=== PATIENT | male | born 1970 | race Caucasian/White ===

== ENCOUNTER 2019-03-29 15:28 | Emergency (ER) | payer MEDICARE, SELFPAY ==
[2019-03-29] VITALS (77 sets, daily range): BP systolic 64–141; BP diastolic 42–97; PULSE 76–133; RESP 0–28; TEMP 36.7–37.3; O2SAT 85–100
--- NOTE | 2019-03-29 15:44 | W.ED.GENAD ---
Discharge Plan Disposition Patient Disposition: [facility] Condition: Fair Discharge Details Chief Complaint: GenMedical Clinical Impression: Hypotension, ESRD (end stage renal disease) on dialysis Primary Care Provider: Lorne Stewart ED Provider: Sivan Ang Home Meds and New Rx's Prescriptions: No Action atorvastatin [Lipitor] 40 mg Tablet 40 mg PO DAILY RF: 0 torsemide 20 mg Tablet 40 mg PO UNKNOWN RF: 0 amlodipine 5 mg Tablet 5 mg PO DAILY RF: 0 lisinopril 10 mg Tablet 10 mg PO DAILY RF: 0 aspirin 81 mg Tablet,Chewable 81 mg PO DAILY RF: 0 Levemir FlexTouch U-100 Insuln 100 unit/mL (3 mL) Insulin Pen 20 unit subcut HS RF: 0 sevelamer carbonate [Renvela] 800 mg Tablet 1,600 mg PO TID RF: 0 Discharge Data Discharge Date/Time-TO BE ENTERED AT DEPARTURE: 03/29/19 19:55 Medical Decision Making 48-year-old male with a history of diabetes, hypertension, hyperlipidemia, end-stage renal disease on dialysis who presents for hypotension noted at dialysis and increasing worsening generalized weakness over the past 2 weeks. Systolic blood pressure in the 70s per EMS. Patient was given 2500 L of fluid and no fluid was taken off of dialysis due to his hypotension. Systolic BP on arrival 120s. Shortly after arrival, blood pressure decreased to 65/45. Pt appears pale. Patient was recently at [facility] for anemia and acute renal failure and profound metabolic acidosis attributed to poorly controlled diabetes, hypertension and NSAID use. He was initiated on dialysis on this recent [facility] admission. Concern for fluid overload from dialysis in the setting of hypotension. We will give a 250 bolus and continued gentle hydration and monitoring blood pressures. Blood pressure 80s. Will start levophed. EKG notes a rate of 83 and sinus with T wave inversion in 1, aVL, V2 through V6. No acute ST findings. Labs and imaging reviewed. Hemoglobin 6.8. Hemoglobin on admission to [facility] was 6.5. Upon discharge was 9. BUN 56. Creatinine 5. Calcium 8. Chest x-ray negative. Unclear source of hypotension. Does not appear consistent with sepsis. Possibly due to anemia? Guaiac negative. Possible cardiac origin as EKG abnormal but no old EKG to compare. 1700 --discussed with [facility] hospitalist -cannot accept patient if on pressors. Blood pressure 101/77. Will DC pressors and monitor. If continuing to need pressors, will call critical care at [facility]. We will also order 1 unit PRBC. Concern for fluid overload in the setting of renal failure on dialysis and will need to transfer to facility with dialysis. 1800 --BP 79/55. Discussed with [facility] critical care Dr. Morales - no ICU beds available but accepts for transfer to ED. Accepting physician in ED Dr. Wolff. Patient agreeable with transfer. Dr. Morales recommends against central line placement as they will remove it once he arrives there. Would prefer levophed through peripheral line. Will restart levophed. 1910 --BP prior to transfer on 4mcg of levophed ~ 112/76, HR 85, RR 16. Pt appears comfortable and in no acute distress. Medical Records Medical records reviewed: Yes I reviewed the patient's medical records. Imaging Data Radiologic Study: Radiologist's impression: XR Chest, 1 View EXAM DATE/TIME: 03/29/2019 3:40 PM CLINICAL HISTORY: 48 years old, male; Signs and symptoms; Other: Generalized weakness. R/O acute disease TECHNIQUE: Imaging protocol: XR of the chest, 1 view. COMPARISON: No relevant prior studies available. FINDINGS: A left-sided Port-A-Cath is present. No airspace consolidation, pleural effusion or pneumothorax. The cardiomediastinal silhouette is unremarkable. IMPRESSION: No acute findings. Lab Data Lab results reviewed: Yes I reviewed the patient's lab results. ECG Data Attestation: I personally reviewed and interpreted this ECG (s) as follows: Interpretation: Rate of 83, sinus, T wave inversion in 1, aVL, V2 through V6. No acute ST elevation. QTc 444. QRS 96 HPI General Mode of arrival: EMS. Date/Time Provider Initiated Documentation: 03/29/19 15:37. Limitations to Documentation: no limitations. Information obtained by: patient. HPI Narrative: Patient is a 48-year-old male with a history of diabetes, hypertension, and recently diagnosed acute renal failure currently on dialysis who presents for hypotension noted at dialysis today. Systolic pressures in the 70s per EMS. Patient admits to generalized increasing weakness over the past 2 weeks since discharge from [facility] 2 weeks ago. Patient states he was admitted for anemia, and shortness of breath after he presented to [facility] and was then transferred to [facility]. Patient states he has been on Tuesday, , Tuesday dialysis. Related Data Home Medications Medication Instructions Recorded Confirmed amlodipine 5 mg PO DAILY 03/29/19 03/29/19 aspirin 81 mg PO DAILY 03/29/19 03/29/19 atorvastatin [Lipitor] 40 mg PO DAILY 03/29/19 03/29/19 insulin detemir U-100 [Levemir 20 unit SUBCUT HS 03/29/19 03/29/19 FlexTouch U-100 Insuln] lisinopril 10 mg PO DAILY 03/29/19 03/29/19 sevelamer carbonate [Renvela] 1,600 mg PO TID 03/29/19 03/29/19 torsemide 40 mg PO UNKNOWN 03/29/19 03/29/19 Allergies Allergy/AdvReac Type Severity Reaction Status Date / Time No Known Allergies Allergy Unverified 03/29/19 15:33 General Stated Complaint: GenMedical ASHISH: 2 Review of Systems Review of Systems All systems reviewed & are unremarkable except as noted in HPI and below Constitutional Reports as per HPI, Denies chills and Denies fever(s) Eyes Denies blurry vision ENT Denies dizziness, Denies sore throat and Denies throat swelling Cardiovascular Denies chest pain and Denies dyspnea Respiratory Denies cough and Denies dyspnea Gastrointestinal Denies abdominal pain, Denies diarrhea and Denies vomiting Genitourinary Denies hematuria and Denies dysuria Musculoskeletal Denies back pain and Denies numbness Integumentary/Breasts Denies lesions and Denies rash Neurologic Denies dizziness, Denies focal weakness and Denies numbness Allergic/Immunologic Denies throat swelling [facility] Medical History ESRD (end stage renal disease) on dialysis (Acute) Hx of hyperlipidemia (Acute) Diabetes (Chronic) HTN (hypertension) (Chronic) Surgical History Port-A-Cath in place (Acute) Social History Smoking/Tobacco Use Status: Current every day Alcohol Intake: never Substance use type: does not use Do you feel safe at home: Yes Do you feel safe in your relationship?: Yes Exam Const General: cooperative and no acute distress HENMT Head: normal to inspection Face and sinus: normal facial exam Eyes General: appearance normal, both eyes and all related structures Pupils: PERRL EOM: EOM intact bilaterally Neck Neck: normal visual inspection and No submandibular swelling Lymphatic: no lymphadenopathy noted Chest Chest: normal inspection of the chest and no tenderness Resp Effort & Inspection: normal respiratory effort and able to speak in complete sentences Auscultation: clear to auscultation bilaterally Cardio Rate: regular rate Rhythm: regular rhythm GI Inspection: normal to inspection Palpation: soft, not firm, not rigid and nontender Auscultation: normal bowel sounds Male General Exam: Yes normal external exam Back/Spine/Pelvis Thoracic/Lumbar Spine: thoracic and lumbar spine normal to inspection Pelvis: no pain with anterior-posterior compression Skin General skin exam: no rashes or lesions noted Neuro General: alert, awake and oriented x3 Cognition: normal cognition Speech: speech normal Motor: muscle tone normal throughout Sensory Exam: no sensory deficits noted Extrem Other: Bilateral BKA Psych Appearance: grossly normal Mental Status: mental status grossly normal Speech and Movement: speech and movement normal Affect: normal affect Course Vital Signs Temperature 98.1 F 03/29/19 15:30 Pulse 84 03/29/19 15:30 Respiratory Rate 14 03/29/19 15:30 Blood Pressure 126/97 H 03/29/19 15:30 Pulse Oximetry 100 03/29/19 15:30 Temperature 98.1 F 03/29/19 15:30 Temperature Source Temporal Artery Scan 03/29/19 15:30 Pulse 84 03/29/19 15:30 Respiratory Rate 14 03/29/19 15:30 Respiratory Effort Non-Labored 03/29/19 15:30 Blood Pressure 126/97 H 03/29/19 15:30 Pulse Oximetry 100 03/29/19 15:30 Oxygen Delivery Method Room Air 03/29/19 15:30 Oxygen Flow Rate 0 03/29/19 15:30 Pain Level 0 03/29/19 15:30 Critical Care Time Total Critical Care Time: 20 Attestation: minutes
[2019-03-29] MEDS: Normal Saline Flush 10 ML SYR IVP (15:49)
--- NOTE | 2019-03-29 15:51 | ED.GENADUL_ITS ---
Discharge Plan Disposition Patient Disposition: [facility] Condition: Fair Discharge Details Chief Complaint: GenMedical Clinical Impression: Hypotension, ESRD (end stage renal disease) on dialysis Primary Care Provider: Lorne Stewart ED Provider: Sivan Ang Home Meds and New Rx's Prescriptions: No Action atorvastatin [Lipitor] 40 mg Tablet 40 mg PO DAILY RF: 0 torsemide 20 mg Tablet 40 mg PO UNKNOWN RF: 0 amlodipine 5 mg Tablet 5 mg PO DAILY RF: 0 lisinopril 10 mg Tablet 10 mg PO DAILY RF: 0 aspirin 81 mg Tablet,Chewable 81 mg PO DAILY RF: 0 Levemir FlexTouch U-100 Insuln 100 unit/mL (3 mL) Insulin Pen 20 unit subcut HS RF: 0 sevelamer carbonate [Renvela] 800 mg Tablet 1,600 mg PO TID RF: 0 Discharge Data Discharge Date/Time-TO BE ENTERED AT DEPARTURE: 03/29/19 19:55 Medical Decision Making 48-year-old male with a history of diabetes, hypertension, hyperlipidemia, end- stage renal disease on dialysis who presents for hypotension noted at dialysis and increasing worsening generalized weakness over the past 2 weeks. Systolic blood pressure in the 70s per EMS. Patient was given 2500 L of fluid and no fluid was taken off of dialysis due to his hypotension. Systolic BP on arrival 120s. Shortly after arrival, blood pressure decreased to 65/45. Pt appears pale. Patient was recently at [facility] for anemia and acute renal failure and profound metabolic acidosis attributed to poorly controlled diabetes, hypertension and NSAID use. He was initiated on dialysis on this recent [facility] admission. Concern for fluid overload from dialysis in the setting of hypotension. We will give a 250 bolus and continued gentle hydration and monitoring blood pressures. Blood pressure 80s. Will start levophed. EKG notes a rate of 83 and sinus with T wave inversion in 1, aVL, V2 through V6. No acute ST findings. Labs and imaging reviewed. Hemoglobin 6.8. Hemoglobin on admission to [facility] was 6.5. Upon discharge was 9. BUN 56. Creatinine 5. Calcium 8. Chest x-ray negative. Unclear source of hypotension. Does not appear consistent with sepsis. Possibly due to anemia? Guaiac negative. Possible cardiac origin as EKG abnormal but no old EKG to compare. 1700 --discussed with [facility] hospitalist -cannot accept patient if on pressors. Blood pressure 101/77. Will DC pressors and monitor. If continuing to need pressors, will call critical care at [facility]. We will also order 1 unit PRBC. Concern for fluid overload in the setting of renal failure on dialysis and will need to transfer to facility with dialysis. 1800 --BP 79/55. Discussed with [facility] critical care Dr. Morales - no ICU beds available but accepts for transfer to ED. Accepting physician in ED Dr. Wolff. Patient agreeable with transfer. Dr. Morales recommends against central line placement as they will remove it once he arrives there. Would prefer levophed through peripheral line. Will restart levophed. 1910 --BP prior to transfer on 4mcg of levophed ~ 112/76, HR 85, RR 16. Pt appears comfortable and in no acute distress. Medical Records Medical records reviewed: Yes I reviewed the patient's medical records. Imaging Data Radiologic Study: Radiologist's impression: XR Chest, 1 View EXAM DATE/TIME: 03/29/2019 3:40 PM CLINICAL HISTORY: 48 years old, male; Signs and symptoms; Other: Generalized weakness. R/O acute disease TECHNIQUE: Imaging protocol: XR of the chest, 1 view. COMPARISON: No relevant prior studies available. FINDINGS: A left-sided Port-A-Cath is present. No airspace consolidation, pleural effusion or pneumothorax. The cardiomediastinal silhouette is unremarkable. IMPRESSION: No acute findings. Lab Data Lab results reviewed: Yes I reviewed the patient's lab results. ECG Data Attestation: I personally reviewed and interpreted this ECG (s) as follows: Interpretation: Rate of 83, sinus, T wave inversion in 1, aVL, V2 through V6. No acute ST elevation. QTc 444. QRS 96 HPI General Mode of arrival: EMS . Date/Time Provider Initiated Documentation: 03/29/19 15:37 . Limitations to Documentation: no limitations . Information obtained by: patient . HPI Narrative: Patient is a 48-year-old male with a history of diabetes, hypertension, and recently diagnosed acute renal failure currently on dialysis who presents for hypotension noted at dialysis today. Systolic pressures in the 70s per EMS. Patient admits to generalized increasing weakness over the past 2 weeks since discharge from [facility] 2 weeks ago. Patient states he was admitted for anemia, and shortness of breath after he presented to and was then transferred to [facility]. Patient states he has been on Tuesday, , Tuesday dialysis. Related Data Home Medications Medication Instructions Recorded Confirmed amlodipine 5 mg PO DAILY 03/29/19 03/29/19 aspirin 81 mg PO DAILY 03/29/19 03/29/19 atorvastatin [Lipitor] 40 mg PO DAILY 03/29/19 03/29/19 insulin detemir U-100 [Levemir 20 unit SUBCUT HS 03/29/19 03/29/19 FlexTouch U-100 Insuln] lisinopril 10 mg PO DAILY 03/29/19 03/29/19 sevelamer carbonate [Renvela] 1,600 mg PO TID 03/29/19 03/29/19 torsemide 40 mg PO UNKNOWN 03/29/19 03/29/19 Allergies Allergy/AdvReac Type Severity Reaction Status Date / Time No Known Allergies Allergy Unverified 03/29/19 15:33 General Stated Complaint: GenMedical ASHISH: 2 Review of Systems Review of Systems All systems reviewed & are unremarkable except as noted in HPI and below Constitutional Reports as per HPI, Denies chills and Denies fever(s) Eyes Denies blurry vision ENT Denies dizziness, Denies sore throat and Denies throat swelling Cardiovascular Denies chest pain and Denies dyspnea Respiratory Denies cough and Denies dyspnea Gastrointestinal Denies abdominal pain, Denies diarrhea and Denies vomiting Genitourinary Denies hematuria and Denies dysuria Musculoskeletal Denies back pain and Denies numbness Integumentary/Breasts Denies lesions and Denies rash Neurologic Denies dizziness, Denies focal weakness and Denies numbness Allergic/Immunologic Denies throat swelling [facility] Medical History ESRD (end stage renal disease) on dialysis (Acute) Hx of hyperlipidemia (Acute) Diabetes (Chronic) HTN (hypertension) (Chronic) Surgical History Port-A-Cath in place (Acute) Social History Smoking/Tobacco Use Status: Current every day Alcohol Intake: never Substance use type: does not use Do you feel safe at home: Yes Do you feel safe in your relationship?: Yes Exam Const General: cooperative and no acute distress HENMT Head: normal to inspection Face and sinus: normal facial exam Eyes General: appearance normal, both eyes and all related structures Pupils: PERRL EOM: EOM intact bilaterally Neck Neck: normal visual inspection and No submandibular swelling Lymphatic: no lymphadenopathy noted Chest Chest: normal inspection of the chest and no tenderness Resp Effort & Inspection: normal respiratory effort and able to speak in complete sentences Auscultation: clear to auscultation bilaterally Cardio Rate: regular rate Rhythm: regular rhythm GI Inspection: normal to inspection Palpation: soft, not firm, not rigid and nontender Auscultation: normal bowel sounds Male General Exam: Yes normal external exam Back/Spine/Pelvis Thoracic/Lumbar Spine: thoracic and lumbar spine normal to inspection Pelvis: no pain with anterior-posterior compression Skin General skin exam: no rashes or lesions noted Neuro General: alert, awake and oriented x3 Cognition: normal cognition Speech: speech normal Motor: muscle tone normal throughout Sensory Exam: no sensory deficits noted Extrem Other: Bilateral BKA Psych Appearance: grossly normal Mental Status: mental status grossly normal Speech and Movement: speech and movement normal Affect: normal affect Course Vital Signs Temperature 98.1 F 03/29/19 15:30 Pulse 84 03/29/19 15:30 Respiratory Rate 14 03/29/19 15:30 Blood Pressure 126/97 H 03/29/19 15:30 Pulse Oximetry 100 03/29/19 15:30 Temperature 98.1 F 03/29/19 15:30 Temperature Source Temporal Artery Scan 03/29/19 15:30 Pulse 84 03/29/19 15:30 Respiratory Rate 14 03/29/19 15:30 Respiratory Effort Non-Labored 03/29/19 15:30 Blood Pressure 126/97 H 03/29/19 15:30 Pulse Oximetry 100 03/29/19 15:30 Oxygen Delivery Method Room Air 03/29/19 15:30 Oxygen Flow Rate 0 03/29/19 15:30 Pain Level 0 03/29/19 15:30 Critical Care Time Total Critical Care Time: 20 Attestation: minutes
--- NOTE | 2019-03-29 16:19 | DI.RAD_ITS ---
SYMPTOM/DIAGNOSIS: GENERALIZED WEAKNESS PORTABLE AP CHEST: There are no prior comparison exams. The heart is enlarged. A double lumen catheter is noted with the tip in the right atrium. The lungs appear clear. IMPRESSION: Cardiomegaly. No acute abnormality.
[2019-03-29 16:20] LABS: Abs Immature Grans 0.05 k/cumm (0.0-0.09); Absolute Basophil Count 0.08 k/cumm (0.0-0.2); Absolute Eosinophil Count 0.27 k/cumm (0.0-0.7); Absolute Lymphocyte Count 2.36 k/cumm (1.2-3.4); Absolute Monocyte Count 0.87 k/cumm (0.11-0.7); Absolute Neutrophil Count 7.08 k/cumm (1.2-6.7); Basophils % 0.7; Eosinophils % 2.5; HCT 22.2 % (40.0-50.0); Immature Grans % 0.5; Mean Corp. HGB Concentration 30.6 g/dL (32.0-36.0); Mean Corpuscular Hemoglobin 28.6 pg (27.0-33.0); Mean Corpuscular Volume 93.3 fL (80-95); Mean Platelet Volume 9.7 fL (8.0-11.0); Monocytes % 8.1; Neutrophils % 66.2; Platelet Count 397 x1000/uL (130-400); RBC 2.38 m/cumm (4.50-6.00); RBC Distribution Width 14.5 % (11.8-14.1); White Blood Cell Count 10.71 k/cumm (4.4-10.8)
[2019-03-29 16:25] LABS: HGB 6.8 g/dL (13.5-17.5)
[2019-03-29 16:34] LABS: ALT 32 U/L (12-78); AST 49 U/L (15-37); Alkaline Phosphatase 196 U/L (46-116); Anion Gap 9.3 mmol/L (3-11); BUN 56 mg/dL (7-18); Bilirubin, Total 0.2 mg/dL (0.2-1.0); CO2 30.7 mmol/L (21.0-32.0); Chloride 97 mmol/L (98-107); Estimated GFR 12.56 (mL/min/1.73m2); Glucose 151 mg/dL (70-100); Magnesium 2.5 mg/dL (1.8-2.4); Potassium 4.6 mmol/L (3.5-5.1); Sodium 137 mmol/L (136-145); Total Protein 6.3 g/dL (6.4-8.2); Troponin I 0.03 ng/mL (0.00-0.06)
--- NOTE | 2019-03-29 16:41 | DI.VRAD_ITS ---
EXAM: XR Chest, 1 View EXAM DATE/TIME: 03/29/2019 3:40 PM CLINICAL HISTORY: 48 years old, male; Signs and symptoms; Other: Generalized weakness. R/O acute disease TECHNIQUE: Imaging protocol: XR of the chest, 1 view. COMPARISON: No relevant prior studies available. FINDINGS: A left-sided Port-A-Cath is present. No airspace consolidation, pleural effusion or pneumothorax. The cardiomediastinal silhouette is unremarkable. IMPRESSION: No acute findings. Dictated and Authenticated by: Matthew Das MD. Ordering:SIERRA Finnegan MD
[2019-03-29 18:52] LABS: Lactate-non-spesis 1.3 mmol/l (0.6-1.4)
[2019-03-29] MEDS: PIPERACILLIN/TAZO 3.375 GM in Normal Saline 50 ML IVPB (19:16)
[2019-03-29] MEDS: Hydrocortisone 1% CR 30 GM TUBE TP (19:30)
== END 2019-03-29 19:55 ==
PROVIDERS: Emergency Provider Physician Assistant; PCP Family Medicine
DX: I95.9 Hypotension, unspecified (principal); R94.31 Abnormal electrocardiogram [ECG] [EKG]; I12.0 Hypertensive chronic kidney disease with stage 5 chronic kidney disease or end stage renal disease; N18.6 End stage renal disease; E11.9 Type 2 diabetes mellitus without complications; Z99.2 Dependence on renal dialysis
CPT/HCPCS: 36410; 36430; 80053; 86850; 86900; 86901; 86920; 87040; 93005; 96365; 96366; 96368; 99285; 71045; 83605; 83735; 84484; 85025; 93010; J2543; P9016

== ENCOUNTER → 2021-08-03 13:13 | Outpatient (BNVA) | payer MEDICARE, MEDICAID, SELFPAY | PROVIDERS: PCP Family Medicine; Referring Provider Family Medicine; Visit Provider Surgery | DX: E11.22 Type 2 diabetes mellitus with diabetic chronic kidney disease (principal); N18.6 End stage renal disease; Z99.2 Dependence on renal dialysis; Z45.2 Encounter for adjustment and management of vascular access device; Z86.39 Personal history of other endocrine, nutritional and metabolic disease; I10 Essential (primary) hypertension | CPT/HCPCS: 36589; 99214 ==

== ENCOUNTER → 2021-08-31 12:33 | Outpatient (BNVA) | payer MEDICARE, MEDICAID, SELFPAY | PROVIDERS: PCP Family Medicine; Referring Provider Family Medicine; Visit Provider Surgery | DX: Z01.818 Encounter for other preprocedural examination (principal); I12.9 Hypertensive chronic kidney disease with stage 1 through stage 4 chronic kidney disease, or unspecified chronic kidney disease; E11.22 Type 2 diabetes mellitus with diabetic chronic kidney disease; N18.6 End stage renal disease; Z99.2 Dependence on renal dialysis; F17.210 Nicotine dependence, cigarettes, uncomplicated; Z86.39 Personal history of other endocrine, nutritional and metabolic disease | CPT/HCPCS: 99213; 99214 ==

== ENCOUNTER 2021-09-21 03:23 | Outpatient (CLI) | payer MEDICARE, MEDICAID, SELFPAY ==
[2021-09-21 12:50] LABS: Source Nasal/Nares
[2021-09-21 18:38] LABS: COVID-19 PCR Negative (Negative)
== END 2021-09-21 03:24 | disposition home or self-care (01) ==
LOC: LBO 03:23
PROVIDERS: PCP Family Medicine; Visit Provider Surgery
DX: Z20.822 Contact with and (suspected) exposure to COVID-19 (principal); Z01.818 Encounter for other preprocedural examination
CPT/HCPCS: 87635

== ENCOUNTER 2021-09-22 07:24 | Day surgery (SDC) | payer MEDICARE, MEDICAID, SELFPAY ==
--- NOTE | 2021-09-21 14:10 | W.ANESPRE ---
General Info Date of Service Date Performed: 09/22/21 Height: 6 ft Weight: 74.389 kg Body Mass Index (BMI): 22.2 Surgical Procedure: Operation Date: 09/22/21 08:35 Proposed Procedures Side Surgeon juan Barboza, Meds Allergies and Home Medications Allergies Allergy/AdvReac Type Severity Reaction Status Date / Time No Known Allergies Allergy Unverified 09/21/21 13:41 Home Medication Medication Instructions Recorded aspirin 81 mg PO DAILY 03/29/19 amlodipine 5 mg tablet 10 mg PO DAILY tab 07/24/21 insulin detemir U-100 100 unit/mL 50 unit SUBCUT DAILY ml 07/24/21 (3 mL) subcutaneous pen vitamin B complex and vitamin C 1 cap PO DAILY 07/24/21 no.20-folic acid 1 mg capsule atorvastatin 80 mg tablet 80 mg PO DAILY 08/24/21 glucagon HCl 1 mg solution for 1 mg SUBCUT Q20M PRN 08/24/21 injection insulin aspart U-100 100 unit/mL 4 unit SUBCUT .5 times a day ml 08/24/21 (3 mL) subcutaneous pen lisinopril 10 mg tablet 10 mg PO DAILY 08/24/21 sevelamer carbonate 800 mg tablet 800 mg PO TID 08/24/21 torsemide 20 mg tablet 40 mg PO TID tab 08/24/21 bisacodyl 5 mg tablet,delayed 5 mg PO ONCE #4 tab 08/31/21 release polyethylene glycol 3350 17 238 g PO ONCE #238 g 08/31/21 gram/dose oral powder PFSH Active Problems Active Problems: Problem Status Onset Code Encounter for removal of vascular catheter Z45.2 Nicotine dependence F17.200 Amputat leg, bilat-complicated S88.911A, S88.912A Diabetes E11.9 Hx of hyperlipidemia Z86.39 HTN (hypertension) I10 ESRD (end stage renal disease) on dialysis N18.6, Z99.2 Medical History Medical History Acidosis Amputat leg, bilat-complicated Anemia Cardiac tamponade per referral 04/30/2019 Chronic kidney disease, stage 4 (severe) Chronic kidney disease, stage 5 onset 03/26/2019 Congestive heart failure Diabetes Diarrhea ESRD (end stage renal disease) on dialysis Heart failure HTN (hypertension) Hx of hyperlipidemia Hypocalcemia Impotence Nausea Nicotine dependence NSTEMI (non-ST elevated myocardial infarction) 30 years ago per pt. Pain, unspecified Pericardial effusion Per referral Type 1 diabetes mellitus Surgical History Surgical History (Updated 09/22/21 @ 07:41 by Christianne May) History of cataract surgery Port-A-Cath in place S/P AKA (above knee amputation) bilateral Tobacco Smoking/Tobacco Use Status: Current every day Tobacco Type: cigarettes Alcohol Alcohol Intake: current Alcohol intake frequency: a few times a month Substance Use Substance use type: does not use Vital Signs and Lab Results Lab Results Blood Type / Crossmatch: No Data to Display Complete Blood Count: No Data to Display Complete Metabolic Panel: No Data to Display Liver Function Panel: No Data to Display Coagulation Panel: No Data to Display Cardiac Panel: No Data to Display Arterial Blood Gas: No Data to Display Venous Blood Gas: No Data to Display Pancreas Panel: No Data to Display Thyroid Panel: No Data to Display Infectious Disease: Coronavirus (COVID-19)(PCR) Negative (Negative) 09/21/21 12:05 09/21/21 Coronavirus 2019 Source Nasal/Nares 09/21/21 12:05 09/21/21 Blood Cultures: No Data to Display Toxicology Panel: No Data to Display Imaging and Studies Imaging and Studies EKG Summary: 04/28/2021: NSR. Stress Test Summary: 04/2021: dobutamine stress echo. indeterminate for ischemia due to target HR not achieved. ECHO: mild concentric left ventricular hypertrophy. LVEF 65%. no ST changes. Carotid Artery Summary:: 04/2021: right 16-49% stenosis. left 16-49% stenosis. Anesthesia Assessment and Plan Anesthesia History Personal History: No History of Anesthesia Complications Family History: No Family History of Anesthesia Complications Exercise Tolerance Exercise Tolerance: Metabolic Equivalents>4 Pertinent Negatives Pertinent Negatives: No Symptoms of GERD, No Major Cardiovascular Symptoms or Complaints, No Major Pulmonary Symptoms or Complaints and No History of CVA/TIA Cardiac & Pulmonary Exam Cardiac Exam: Normal S1/S2 Heart Sounds Pulmonary Exam: Clear Bilateral Breath Sounds Implantable Cardiac Device Does patient have a Pacemaker or an ICD?: No Airway Exam Known Difficult Airway: No Mallampati Class: 1 Mouth Opening: Normal (> 3cm) Thyromental Distance: Greater than 3 cm Facial Hair: Full Greer Neck Range of Motion: Full ROM Neck Circumference: Normal Teeth Condition: Edentulous (Except for 4 on the lower jaw. Patient reports loose. ) ASA Classification ASA Score: ASA 4 Emergency Case?: No NPO Status NPO Status: NPO Clears >2 hours, Solids >8 hours Anesthesia Plan Resuscitation Status: Full Code Anesthesia Technique: General Anesthesia Airway Planned: Natural Airway Monitors Used: Standard Monitors Preoperative Comments:: 50 yo male for colo as part of kidney transplant screening. Sig PMHx: DMII/insulin dependent, ESRD/dialysis, B/L BKA, fistula left upper arm, HTN (amlodipine/lisinopril), smoker, Previous Anes: -igel 5 x 2 -igel 4 -airq 4.5 -previous failed igle 4 and 5 also. -mac 4 grade 2
--- NOTE | 2021-09-21 22:00 | PDOC.DSDIS_ITS ---
Discharge Plan Disposition Patient Disposition: HOME Condition: Good Discharge Details Reason For Visit: colon scope Attending Provider: Dorene Barboza Primary Care Provider: Lorne Stewart Home Meds and New Rx's Prescriptions: Continued Levemir FlexTouch U-100 Insuln 100 unit/mL (3 mL) insulin pen 50 unit subcut DAILY RF: 0 amlodipine 5 mg tablet 10 mg PO DAILY RF: 0 B complex with C 20-folic acid 1 mg capsule 1 cap PO DAILY RF: 0 atorvastatin 80 mg tablet 80 mg PO DAILY RF: 0 Glucagon (HCl) Emergency Kit 1 mg recon soln 1 mg subcut Q20M PRNRF: 0 lisinopril 10 mg tablet 10 mg PO DAILY RF: 0 insulin aspart U-100 [Novolog Flexpen U-100 Insulin] 100 unit/mL (3 mL) insulin pen 4 unit subcut .5 times a day RF: 0 sevelamer carbonate [Renvela] 800 mg tablet 800 mg PO TID RF: 0 torsemide 20 mg tablet 40 mg PO TID RF: 0 aspirin 81 mg Tablet,Chewable 81 mg PO DAILY RF: 0 Discontinued polyethylene glycol 3350 17 gram/dose powder 238 g PO ONCE Qty: 238 RF: 0 bisacodyl [Dulcolax (bisacodyl)] 5 mg tablet,delayed release (DR/EC) 5 mg PO ONCE Qty: 4 RF: 0 Discharge Instructions Additional Instructions: [facility] Colonoscopy Post- Op Instructions Instructions for Everyone who is given Anesthesia: For your safety, please do the following for the next twenty-four (24) hours: *Do Not operate a motor vehicle (car, truck, motorcycle, etc.) *Do Not drink alcoholic beverages or use any recreational drugs for the first 24 hours or while taking pain medications. The medications in your body may have a reaction that can be dangerous. *Do Not make any important decisions or sign any important papers. Findings:right sided diverticula x3 polyps Follow up:repeat scope in 5 yrs time 1. No lifting over 20 pounds or strenuous activity for the first 24 hours after your procedure. After 24 hours there are no restrictions on your activity but you may feel fatigued for a few days. 2. After you arrive home you may have a light meal and return to your normal diet as you can tolerate it without feeling sick to your stomach. 3. You may have a bloated, gaseous feeling in your belly (abdomen) after a colonoscopy. Passing gas and belching will help. Walking or lying down on your left side with your knees flexed may relieve the discomfort. Call the office at [phone] (Office) or [phone] (Hospital) right away if you notice any of the following: a.Vomiting of blood or ?coffee ground stools?. b.Rectal bleeding 1Tbsp, blood clots or continuous bleeding. c.Severe belly (abdominal) pain. d.A hard distended belly (abdomen) and an inability to pass gas. 4. Please don?t expect to have a normal BM (bowel movement) for 2-3 days after your procedure. 5. If there are questions regarding the findings of your procedure, please contact your doctor 6. If you are unable to contact your doctor with a problem, contact the hospital at [phone]. 7. Continue all your regular medications unless directed otherwise. I understand the above instructions and have no questions. Signature of Patient or Adult Escort Name of Responsible Adult Escort Signature of Nurse Date/Time Activity:: see above Diet:: see above Discharge Orders Discharge Orders: Discharge Order (Routine); Ordered 09/21/21 Ordered By: Dorene Barboza DS: Diagnosis Discharge Diagnosis (1) Nicotine dependence: Status: Acute (2) Amputat leg, bilat-complicated: Status: Acute (3) Diabetes: Status: Chronic (4) Hx of hyperlipidemia: Status: Acute (5) HTN (hypertension): Status: Chronic (6) ESRD (end stage renal disease) on dialysis: Status: Acute (7) Pre-transplant evaluation for kidney transplant: Status: Acute
--- NOTE | 2021-09-21 22:04 | W.COLOREPORT ---
Colonoscopy Report Date of procedure: 09/22/21 Pre-op diagnosis general: preOP eval for kidney transplant/anemia Post-op diagnosis procedure note: other (polyps) Surgeon: Dorene Barboza Anesthesia Type: General:No Airway Disposition: same day Prep: GoLYTELY Retraction Time: 11 mins Procedure Description: After informed consent was obtained the patient was taken to the procedure room and placed in a left decubitous position. Monitors were applied and a time out was done. The patients name, date of , procedure, allergies to medications and metal in their body was reviewed. The patient was then sedated. Once sedated and comfortable a rectal exam was done. External exam was normal. Internal exam revealed a normal sphincter tone and no palpable masses. The scope was then introduced and retrofelexed. No internal hemorrhoids were identified. The scope was then advanced to the cecum w/ out difficulty. The TI and appendiceal orifice were identified. The prep was adequate. There was still quite a bit of liquid stool in the right colon. This was lavaged with 2 L of saline. The scope was then slowly retracted over 11 minutes back into the rectum. 2 polyps that are removed today. Both are flat 0.75 cm polyp. They were at: 90 cm and 70 cm. These are removed with a cold biting forcep. All specimen is retrieved and no bleeding is noted. The scope was removed and the patient was woken up and taken back to Same day surgery in stable condition. The patient tolerated the procedure well and there were no immediate complications. Follow up: The patient should follow up in 5 years unless they develop changes in bowel habits or other new gastrointestinal complaints.
[2021-09-22 07:30] VITALS: BP 95/54; PULSE 93; RESP 18; TEMP 36.1; O2SAT 100
[2021-09-22 08:38] VITALS: BMI 22.2
[2021-09-22] MEDS: Lactated Ringers 1,000 ML 30 ML IV (08:40)
--- NOTE | 2021-09-22 09:05 | BOWEL_PTH ---
PATIENT: Bob Miller LOC: [facility] U#:[id number] AGE/SX: 50/M ROOM: RE09/22/[address]: Dorene Barboza : 1970 BED: DIS: 09/22/2021 SPEC #: [id number] RECD: 09/22/21 12:38 STATUS: JAYME REQ #: [id number] SIA: 09/22/21 09:[address]: Dorene Barboza DEPT: Surgical Specimen RECD BY: Antonieta Vitale ENTERED: 09/22/21 12:39 SP TYPE: Bowel OTHR DR: Lorne Stewart Tissues: 1 - BIOPSY BOWEL 2 - BIOPSY BOWEL Procedures: GROSS AND MICRO LEVEL 4 Comments: [id number]
[2021-09-22 09:25] VITALS: BP 122/90; PULSE 69; RESP 16; TEMP 36.3; O2SAT 100
--- NOTE | 2021-09-22 09:33 | W.ANESPOSTOP ---
Postoperative Evaluation Date, Time and Location Date Performed: 09/22/21 Time Performed: 09:33 Patient Location: Day Surgery Unit Vital Signs Most Recent Imported Vital Signs: Most Recent Vital Signs Temp Pulse Resp BP Pulse Ox 36.3 C L 69 16 122/90 100 09/22/21 09:25 09/22/21 09:25 09/22/21 09:25 09/22/21 09:25 09/22/21 09:25 Pain Score Most Recent Pain Score: Most Recent Pain Score Pain Level 0 09/22/21 09:25 Assessment Mental Status: Awake (Alert & Oriented to Patient Baseline) Airway and Respiratory Function: Patent airway with normal (patient baseline) respiratory exam Cardiovascular Function: Hemodynamically Stable Hydration Status: Adequately Hydrated Nausea & Vomiting: No Nausea or Vomiting Pain: Pt. Denies Any Pain Peripheral Nerve Block: Patient did not receive a nerve block
[2021-09-22 09:57] VITALS: BP 115/59; PULSE 75; RESP 16; TEMP 36.3; O2SAT 99
== END 2021-09-22 10:20 | disposition home or self-care (01) ==
PROVIDERS: PCP Family Medicine; Visit Provider Surgery
PROC: 0DJD8ZZ Inspection of Lower Intestinal Tract, Via Natural or Artificial Opening Endoscopic (ICD-10-PCS; CPT 45378; principal; 2021-09-22 08:30)
DX: D64.9 Anemia, unspecified (principal); D12.3 Benign neoplasm of transverse colon; N18.5 Chronic kidney disease, stage 5; E11.22 Type 2 diabetes mellitus with diabetic chronic kidney disease; I12.0 Hypertensive chronic kidney disease with stage 5 chronic kidney disease or end stage renal disease; D12.4 Benign neoplasm of descending colon
CPT/HCPCS: 45380; 88305